=== PATIENT | female | born 1985 | race Caucasian/White ===

== ENCOUNTER 2021-02-28 01:14 | Emergency (ER) | payer OTHER ==
[2021-02-28 01:45] VITALS: TEMP 98.3; BMI 24.1
[2021-02-28 01:47] VITALS: PULSE 58
[2021-02-28 01:48] VITALS: BP 102/66
[2021-02-28] MEDS ORDERED: IBUPROFEN 600 MG TABLET (FP) PO ONE ×2 (04:42→05:15)
[2021-02-28] MEDS ORDERED: DEXAMETHASONE 4 MG TABLET (FP) PO ONE (05:00)
[2021-02-28] MEDS ORDERED: DEXAMETHASONE 4 MG TABLET (FP) ONE (05:15)
== END 2021-02-28 05:23 | disposition home or self-care (01) ==
LOC: JER 01:14
DX: H92.01 Otalgia, right ear (principal)
CPT/HCPCS: 99282-25

== ENCOUNTER 2021-03-21 22:46 | Emergency (ER) | payer OTHER ==
[2021-03-21 23:15] VITALS: BP 113/73; PULSE 78; TEMP 98.9; BMI 26.6
[2021-03-22] MEDS ORDERED: SODIUM CHLORIDE 0.9% 500 ML INFUS.BAG IV ONE (00:04)
[2021-03-22] MEDS ORDERED: ACETAMINOPHEN 1000 MG/100 ML VIAL IVPB ONE (00:04)
[2021-03-22] MEDS ORDERED: ACETAMINOPHEN INJECTION 100 ML IVPB ONE (00:13)
[2021-03-22] MEDS ORDERED: morphine CARPU-JECT 2 MG/1 ML DISP.SYRIN IVPUSH ONE (01:08)
[2021-03-22 01:27] LABS: BASO % 0.8 % (0-2.0); EOS % 4.5 % (0-4.5); HEMATOCRIT 38.4 % (32.4-45.2); HEMOGLOBIN 13.2 GM/dL (10.7-15.3); MCH 31.2 pg (25.7-33.7); MCHC 34.3 g/dl (32.0-36.0); MEAN PLT VOLUME 8.6 fl (7.5-11.1); MONO % 9.6 % (3.8-10.2); NEUT % 65.1 % (42.8-82.8); PLATELET COUNT 259 10^3/uL (134-434); RBC 4.22 M/mm3 (3.60-5.2); RDW 12.4 % (11.6-15.6); WHITE BLOOD COUNT 9.2 K/mm3 (4.0-10.0)
[2021-03-22] MEDS ORDERED: MORPHINE SULFATE 2 MG/ML VIAL ONE ×2 (01:30→01:42)
[2021-03-22 02:06] LABS: ALBUMIN 4.3 g/dl (3.4-5.0); BILIRUBIN,TOTAL 0.3 mg/dL (0.2-1); BLOOD UREA NITROGEN 14.3 mg/dL (7-18); CALCIUM 9.1 mg/dL (8.5-10.1); CREATININE 0.7 mg/dL (0.55-1.3); TOT PROT 7.9 g/dl (6.4-8.2)
[2021-03-22 02:25] LABS: PH,URINE 5.5 (5.0-8.0); URINE APPEARANCE Clear; URINE BILIRUBIN Negative (NEGATIVE); URINE COLOR Yellow; URINE GLUCOSE (UA) Negative (NEGATIVE); URINE KETONE Negative (NEGATIVE); URINE LEUK ESTERASE Negative (NEGATIVE); URINE NITRITE Negative (NEGATIVE); URINE PROTEIN Negative (NEGATIVE); URINE UROBILINOGEN 0.2 mg/dL (0.2-1.0)
[2021-03-22 02:38] LABS: HCG,QUALITATIVE URINE Negative
[2021-03-22 03:14] LABS: EPI CELLS 5 /uL (0-25.1); HYALINE CASTS 0 /uL (0-3.1); URINE BACTERIA 28 /uL (0-1359); URINE RBC 7 /uL (0-23.9); URINE WBC 4 /uL (0-25.8)
[2021-03-22] MEDS ORDERED: KETOROLAC TROMETHAMINE 15 MG/ML VIAL IVPUSH ONE (05:11)
[2021-03-22] MEDS ORDERED: KETOROLAC TROMETHAMINE 15 MG/ML VIAL ONE (05:16)
== END 2021-03-22 06:12 | disposition home or self-care (01) ==
LOC: JER 22:46
PROC: 3E033NZ Introduction of Analgesics, Hypnotics, Sedatives into Peripheral Vein, Percutaneous Approach (ICD-10-PCS; principal; 2021-03-22)
PROC: 3E033GC Introduction of Other Therapeutic Substance into Peripheral Vein, Percutaneous Approach (ICD-10-PCS; 2021-03-22)
DX: R10.9 Unspecified abdominal pain (principal)
CPT/HCPCS: 36415; 74177-TC; 76830-TC; 80053; 81003; 83605; 84703; 85025; 87086; 99284-25; J0131

== ENCOUNTER 2022-03-24 23:05 | Emergency (ER) | payer OTHER ==
[2022-03-24 23:15] VITALS: BP 124/63; PULSE 73; RESP 19; TEMP 98.6; BMI 25.0
== END 2022-03-25 01:38 | disposition home or self-care (01) ==
LOC: JER 23:05
DX: U07.1 COVID-19 (principal)
CPT/HCPCS: 0241U-QW; 99283-25

== ENCOUNTER 2023-08-26 02:47 | Emergency (ER) | payer OTHER ==
[2023-08-26 02:55] VITALS: BP 123/87; PULSE 92; RESP 16; TEMP 98.3; BMI 25.7
[2023-08-26 03:39] LABS: BASO % 0.8 % (0-2.0); EOS % 5.1 % (0-4.5); HEMATOCRIT 41.5 % (32.4-45.2); HEMOGLOBIN 14.4 GM/dL (10.7-15.3); MCH 31.8 pg (25.7-33.7); MCHC 34.6 g/dl (32.0-36.0); MEAN CELL VOLUME 92.1 fl (80-96); MEAN PLT VOLUME 8.4 fl (7.5-11.1); MONO % 8.7 % (3.8-10.2); NEUT % 68.4 % (42.8-82.8); PLATELET COUNT 303 10^3/uL (134-434); RBC 4.51 M/mm3 (3.60-5.2); WHITE BLOOD COUNT 8.6 K/mm3 (4.0-10.0)
[2023-08-26 03:58] LABS: POTASSIUM 4.3 mmol/L (3.5-5.1)
[2023-08-26 04:00] LABS: CALCIUM 8.8 mg/dL (8.5-10.1)
[2023-08-26 04:01] LABS: ALBUMIN 4.2 g/dl (3.4-5.0); BLOOD UREA NITROGEN 10.3 mg/dL (7-18)
[2023-08-26 04:04] LABS: CREATININE 0.8 mg/dL (0.55-1.3)
[2023-08-26 04:05] LABS: TOT PROT 7.5 g/dl (6.4-8.2)
[2023-08-26 04:06] LABS: BILIRUBIN,TOTAL 0.4 mg/dL (0.2-1)
[2023-08-26] MEDS ORDERED: ACETAMINOPHEN 325 MG TABLET (FP) ONE (04:19)
[2023-08-26] MEDS: ACETAMINOPHEN 325 MG TABLET (FP) PO ONE (04:21)
== END 2023-08-26 05:43 | disposition home or self-care (01) ==
LOC: JER 02:47
DX: R07.0 Pain in throat (principal); J02.9 Acute pharyngitis, unspecified; R22.1 Localized swelling, mass and lump, neck; R61 Generalized hyperhidrosis; R06.9 Unspecified abnormalities of breathing; G47.00 Insomnia, unspecified; Z20.822 Contact with and (suspected) exposure to COVID-19
CPT/HCPCS: 0241U-QW; 36415; 70491-TC; 80053; 84703; 85025; 87651; 99285-25; Q9967